=== PATIENT | female | born 1975 | race Asian ===

== ENCOUNTER 2016-06-01 09:17 | Emergency (ER) | payer SELFPAY ==
[~2016-06-01] VITALS: Ht 157.5 cm; Wt 81.6 kg
[2016-06-01] MEDS ORDERED: MULTIVITAMINS1 EAC2 ORAL (09:25)
[2016-06-01 10:02] VITALS: BP 130/85
[2016-06-01 11:15] LABS: APPEARANCE,URINE SLIGHTLY CLOUDY; KETONES,URINE NEGATIVE (NEGATIVE); LEUKOCYTE ESTERASE ,URINE 3+ (NEGATIVE); NITRITE,URINE NEGATIVE (NEGATIVE); PH,URINE 7 (4.5-8.0); PROTEIN,URINE NEGATIVE (NEGATIVE); UROBILINOGEN,URINE NORMAL MG/DL (0.0-1.0)
[2016-06-01 11:24] LABS: SQUAMOUS EPITHELIAL CELL,UR FEW /LPF (NONE/OCC); WBC,URINE 15-20 /HPF (0 - 2)
[2016-06-01 11:25] LABS: BACTERIA,URINE FEW /HPF
[2016-06-01] MEDS ORDERED: KEFLEX500 MG ORAL (11:46)
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
== END 2016-06-01 10:02 | disposition home or self-care (01) ==
LOC: EMR 09:47
DX: N30.01 Acute cystitis with hematuria (principal); Z88.8 Allergy status to other drugs, medicaments and biological substances
CPT/HCPCS: 81003; 81025; 87086; 99282; 99283